=== PATIENT | male | born 1930 | race Hispanic/Latino ===

== ENCOUNTER 2018-02-12 13:41 | Emergency (ER) | payer OTHER ==
[~2018-02-12 13:41] MED LIST: ASPI-1197 PO; CHOL100040 PO; CIPR-278 PO; CYAN250010 PO; GEMF600T3 PO; GLIP10TA9 PO; LISI40TA4 PO; METO50TA18 PO; NPH,100V11 SQ; RILU50TA8 PO; TAMS-1 PO
[2018-02-12 14:16] LABS: BASOPHILS % (AUTO) 0.9 % (0.0-5.0); EOSINOPHILS % (AUTO) 2.3 % (0.0-8.0); HEMATOCRIT 33.3 % (42-54); LYMPHOCYTES % (AUTO) 18.9 % (21.0-51.0); MEAN CORPUSCULAR HEMOGLOBIN 30.1 pg (27.0-33.0); MEAN CORPUSCULAR HGB CONC 35.9 g/dL (32.0-36.0); MEAN CORPUSCULAR VOLUME 83.8 fL (79-99); MONOCYTES % (AUTO) 6.1 % (3.0-13.0); NEUTROPHILS % (AUTO) 71.8 % (40.0-77.0); PLATELET COUNT (AUTO) 362 K/uL (130-400); RED BLOOD CELL COUNT(AUTO) 3.97 MIL/uL (4.50-6.20); RED CELL DISTRIBUTION WIDTH 13.4 % (11.0-15.5); WHITE BLOOD COUNT (AUTO) 9.1 K/uL (4.8-10.8)
[2018-02-12 14:24] LABS: CREATININE 1.1 mg/dL (0.5-1.5); POTASSIUM 5.1 mmol/L (3.5-5.1)
[2018-02-12 14:29] LABS: ALBUMIN 3.5 g/dL (3.5-5.0); BILIRUBIN,TOTAL 0.5 mg/dL (0.2-1.0); TOTAL PROTEIN, SERUM 7.1 g/dL (6.0-8.3)
[2018-02-12] MEDS ORDERED: SODIUM CHLORIDE 0.9% 1000ML 1,000 ML IV ONE (15:22)
== END 2018-02-12 17:46 | disposition home or self-care (01) ==
LOC: EDH 13:41
DX: E87.1 Hypo-osmolality and hyponatremia (principal); R60.0 Localized edema; E11.9 Type 2 diabetes mellitus without complications; E78.5 Hyperlipidemia, unspecified; I10 Essential (primary) hypertension; I25.10 Atherosclerotic heart disease of native coronary artery without angina pectoris; F32.9 Major depressive disorder, single episode, unspecified; Z98.890 Other specified postprocedural states
CPT/HCPCS: 36415; 80053; 85025; 93971; 96360 ×2; 96361 ×2; 99285; J7030

== ENCOUNTER → 2018-05-15 | Outpatient (CLI) | payer OTHER | END | disposition home or self-care (01) | LOC: LAB 16:04 | PROVIDERS: ATTEND Urology | DX: C67.9 Malignant neoplasm of bladder, unspecified (principal) | CPT/HCPCS: 36415; 82565; 84520 ==

== ENCOUNTER → 2019-02-18 | Outpatient (CLI) | payer OTHER ==
[~2019-02-18] MED LIST changes: -CHOL100040 PO; -CIPR-278 PO; -CYAN250010 PO; +CYCL30DR OU; +FOLI0.8T2 PO; -GEMF600T3 PO; +GEMF600T5 PO; -TAMS-1 PO
== END | disposition home or self-care (01) ==
LOC: OIH 12:55
PROVIDERS: ATTEND Internal Medicine
DX: R04.2 Hemoptysis (principal); M47.815 Spondylosis without myelopathy or radiculopathy, thoracolumbar region
CPT/HCPCS: 71046